=== PATIENT | male | born 1960 | race Caucasian/White ===

== ENCOUNTER 2021-12-03 07:34 | Day surgery (SDC) | payer BC ==
[2021-12-03] MEDS ORDERED: Sodium Chloride 0.9% 1,000 ML IV SCH (08:00)
[2021-12-03] MEDS ORDERED: Midazolam 1 MG/ML 2 ML SDV ONE (08:01)
[2021-12-03] MEDS ORDERED: Propofol 200 MG/20 ML SDV ONE (08:01)
[2021-12-03] MEDS ORDERED: fentaNYL 100 MCG/2 ML SDV ONE (08:01)
== END 2021-12-03 11:15 | disposition home or self-care (01) ==
LOC: JP.SDS 07:34
PROVIDERS: ATTEND Surgery
DX: Z12.11 Encounter for screening for malignant neoplasm of colon (principal); K63.89 Other specified diseases of intestine
CPT/HCPCS: 45378; J2250; J2704; J3010; J7030

== ENCOUNTER 2022-01-18 18:03 | Emergency (ER) | payer BC ==
[2022-01-18] MEDS ORDERED: Sodium Chloride 0.9% 10 ML Syringe FLUSH PRN (18:42)
[2022-01-18] MEDS ORDERED: Sodium Chloride 0.9% 1,000 ML IV STA (18:42)
[2022-01-18 19:20] LABS: ESTIMATED GFR 68 mL/min (>60); TROPONIN I HIGH SENSITIVITY 8.7 pg/mL (<=60.3)
[2022-01-18] MEDS ORDERED: Iopamidol 612 MG/ML 100 ML Bottle IV SCH (19:30)
[2022-01-18] MEDS ORDERED: Sodium Chloride 0.9% 75 ML IV SCH (19:30)
[2022-01-18] MEDS ORDERED: fentaNYL 50 MCG/ML SDV IVPUSH ONE (20:03)
[2022-01-18] MEDS ORDERED: Ondansetron 4 MG/2 ML SDV IVPUSH ONE (20:04)
== END 2022-01-18 21:09 | disposition home or self-care (01) ==
LOC: JP.ED 18:03
DX: N20.0 Calculus of kidney (principal); Z86.16 Personal history of COVID-19; Z79.899 Other long term (current) drug therapy
CPT/HCPCS: 36415; 74177; 80053; 81001; 83605; 83690; 84484; 85025; 96361; 96374; 96375; 99284; J2405; J3010; J3490; J7030; Q9967